=== PATIENT | female | born 1945 ===

== ENCOUNTER → 2018-06-16 21:31 | Outpatient (REF) | payer MEDICARE, SELFPAY ==
[2018-06-19 16:23] LABS: Progesterone 0.6 ng/mL
[2018-06-19 20:25] LABS: Estrogen 202.5 pg/mL
== END ==
LOC: LAB 21:31
PROVIDERS: Visit Provider Naturopath
DX: N95.1 Menopausal and female climacteric states (principal); Z79.890 Hormone replacement therapy
CPT/HCPCS: 36415; 82672; 84144; 84270; 84402; 84403